=== PATIENT | male | born 1990 | race Caucasian/White ===

== ENCOUNTER 2018-08-13 07:26 | Emergency (ER) | payer OTHER ==
[2018-08-13 07:41] VITALS: TEMP 98.1; BMI 28.0
--- NOTE | 2018-08-13 08:12 | PDOC ---
History of Present Illness - General Chief Complaint: Pain Stated Complaint: PAIN AND SWELLING RIGHT TESTICLE History Source: Patient Exam Limitations: No Limitations - History of Present Illness Initial Comments: 08/13/18 08:07 28 yo M with a hx of left benign testicular tumor (removed 2004, left orchiectomy 2012) presents to the emergency department with right testicular pain for 3 days with acute worsening starting today. States it feels like it's "wrong spot, lying weird" and is currently constant 7/10 pain (yesterday 01/14). Denies intermittent pain and states the pain has been constant with nausea and vomiting. Denies the following: trauma, fever/chills, dysuria, penile discharge , diarrhea, hematochezia, melena, and loss of sensation in the genital region. Has not seen his urologist Dr. Rhodes in [place] since 2012. Pmhx: Refer to above Shx: Refer to above Meds: bupropion and fluoxetine Allergies: NKDA Social: Endorses tobacco use and marijuana use. Denies alcohol 08/13/18 08:32 Past History - Past Medical History Allergies/Adverse Reactions: Allergies Allergy/AdvReac Type Severity Reaction Status Date / Time No Known Allergies Allergy Verified 08/13/18 07:34 Home Medications: Ambulatory Orders Cyclobenzaprine HCl [Flexeril -] 10 mg PO HS #7 tablet 08/27/15 Naproxen [Naprosyn -] 500 mg PO BID #14 tablet 08/27/15 Cardiac Disorders: (POTS) COPD: No - Immunization History Immunization Up to Date: Yes - Suicide/Smoking/Psychosocial Hx Smoking History: Current every day smoker Number of Cigarettes Smoked Daily: 5 Information on smoking cessation initiated: No Hx Alcohol Use: No Drug/Substance Use Hx: Yes Review of Systems - Review of Systems Constitutional: No: Chills, Diaphoresis, Fever HEENTM: No: Eye Pain, Recent change in vision, Ear Pain, Nose Pain, Throat Pain , Mouth Pain Respiratory: No: Cough, Shortness of Breath, SOB with Exertion, Hemoptysis Cardiac (ROS): No: Chest Pain, Lightheadedness, Palpitations, Syncope, Chest Tightness ABD/GI: No: Constipated, Diarrhea, Difficulty Swallowing, Nausea, Poor Fluid Intake, Rectal Bleeding, Vomiting, Tarry Stools : Yes: Testicular Pain (right). No: Burning, Dysuria, Discharge, Hematuria, Incontinence, Testicular Mass, Testicular Swelling Musculoskeletal: No: Back Pain Integumentary: No: Rash, Sweating Neurological: No: Headache, Numbness, Paresthesia, Tingling, Dizziness Psychiatric: No: Stressors Endocrine: No: Unexplained Weight Gain Hematologic/Lymphatic: No: Anemia *Physical Exam - Vital Signs Last Vital Signs Temp Pulse Resp BP Pulse Ox 98.1 F 88 18 149/81 100 08/13/18 07:34 08/13/18 07:34 08/13/18 07:34 08/13/18 07:34 08/13/18 07:34 - Physical Exam General Appearance: Yes: Nourished, Appropriately Dressed. No: Apparent Distress, Intoxicated HEENT: positive: EOMI, JOANN, Normal ENT Inspection, Normal Voice, Symmetrical, Hearing Grossly Normal. negative: Pale Conjunctivae, Scleral Icterus (R), Scleral Icterus (L), Excessive drooling Neck: positive: Trachea midline. negative: Tender, Lymphadenopathy (R), Lymphadenopathy (L), Tender lateral, Tender midline Respiratory/Chest: positive: Lungs Clear, Normal Breath Sounds. negative: Chest Tender, Respiratory Distress, Accessory Muscle Use, Crackles, Rales, Rhonchi, Stridor, Wheezing Cardiovascular: positive: Regular Rhythm, Regular Rate, S1, S2. negative: Systolic Murmur Gastrointestinal/Abdominal: positive: Normal Bowel Sounds, Flat, Soft. negative : Tender, Pulsatile Mass, Distended, Rebound, Hernia Male Genitalia: positive: normal genitalia, testicular tenderness (states has decreased sensation when palpating the right testicle. prostetic in place for the left testicle). negative: testicular mass, epididymus tender, inguinal hernia, hernia Lymphatic: negative: Adenopathy Musculoskeletal: positive: Normal Inspection. negative: CVA Tenderness Extremity: positive: Normal Capillary Refill, Normal Inspection, Normal Range of Motion. 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 intact, Fully Oriented, Alert, Normal Mood/ Affect, Normal Response, Motor Strength 5/5 Moderate Sedation - Procedure Monitoring Vital Signs: Procedure Monitoring Vital Signs Temperature 98.1 F 08/13/18 07:34 Pulse Rate 88 08/13/18 07:34 Respiratory Rate 18 08/13/18 07:34 Blood Pressure 149/81 08/13/18 07:34 O2 Sat by Pulse Oximetry (%) 100 08/13/18 07:34 ED Treatment Course - RADIOLOGY Radiology Studies Ordered: Category Date Time Status SCROTUM AND CONTENTS US [US] Stat Ultrasound 08/13/18 08:02 Ordered *DC/Admit/Observation/Transfer Diagnosis at time of Disposition: Testicle pain - Discharge Dispostion Disposition: HOME Decision to Admit order: No - Referrals Referrals: Yolanda Rhodes MD [Staff Physician] - [facility] [Provider Group] - Patient Instructions Additional Instructions: You were seen in the emergency department for the evaluation of your right testicular pain. We did a scrotal ultrasound that did not show evidence of infection or torsion. Nonetheless, please return to the emergency department if you have worsening of symptoms or new concerning symptoms such as fever/chills, loss of sensation in the penile area, and swollen/tender/red scrotum. Please follow up with your urologist within 72 hours after discharge for follow up care and management. You can use tylenol and motrin as directed on the label for pain relief. thank you. - Post Discharge Activity Forms/Work/School Notes: Back to Work
--- NOTE | 2018-08-13 08:25 | PDOC ---
Attending Attestation - Resident Resident Name: MaryjoHai - ED Attending Attestation I have performed the following: I have examined & evaluated the patient, The case was reviewed & discussed with the resident, I agree w/resident's findings & plan, Exceptions are as noted - HPI HPI: 08/13/18 08:13 28y M hs of L orchectomy due to mass a few years ago presents with R testicular pain, 3 days of constant pain, feeling like it is out of place, approx 7/10, nonradaiting. No associated dysuria, hematuria, nausea/vomiting/fever/chills, penile discharge. Pt has not been sexually active for 1.5. pain started while he was at work, no masses, heavy lifting. pt notes [place] feels like when he had the mass years ago. Urology: Dr. Yolanda Wilson GENERAL: The patient is awake, alert, and fully oriented, Nontoxic - in no acute distress. ABDOMEN: Soft, nontender, No guarding, no rebound. No CVA tenderness : prosthetic testicle in L testicle, R testicle slightly enlarged, nontender, no epidimal tenderness, no rashes will obtain US to r/o torsion. no focal tenerness to suggest orchitis/ epidimydis. UA to ro UTI gc/chlamydia 08/13/18 10:21 US neg for torsion ua neg gc pending will dc with pmd/gu fu pt feeling better return precautions were discused - Physicial Exam PE: 08/14/18 16:21 see above - Medical Decision Making 08/14/18 16:21 see abov
[2018-08-13 09:40] LABS: URINE APPEARANCE CLEAR; URINE BILIRUBIN NEGATIVE (<2.0 mg/dL); URINE COLOR LTYELLOW; URINE GLUCOSE (UA) NEGATIVE (NEGATIVE); URINE KETONE NEGATIVE (NEGATIVE); URINE LEUK ESTERASE NEGATIVE (NEGATIVE); URINE NITRITE NEGATIVE (NEGATIVE); URINE PROTEIN NEGATIVE (NEGATIVE); URINE UROBILINOGEN NEGATIVE mg/dL (0.2-1.0)
[2018-08-13 11:26] VITALS: BP 138/79; PULSE 78
== END 2018-08-13 11:18 | disposition home or self-care (01) ==
LOC: JER 07:26
DX: N50.811 Right testicular pain (principal); Z85.47 Personal history of malignant neoplasm of testis; Z90.79 Acquired absence of other genital organ(s)
CPT/HCPCS: 36415; 76870-TC; 81003; 87491; 87591; 99282-25